=== PATIENT | male | born 1975 | race Caucasian/White ===

== ENCOUNTER 2020-01-10 09:01 | Emergency (ER) | payer BC, SELFPAY ==
--- NOTE | ~2020-01-10 | CT_ITS ---
EXAMINATION: CT abdomen pelvis wo con DATE: 01/10/2020 09:41 INDICATION: Left flank pain. TECHNIQUE: Computed tomography (CT) of the abdomen and pelvis was performed without intravenous contr ast. Automated exposure control and iterative reconstruction technique were employed. The dose-length product was 947.24 mGy-cm. COMPARISON: None. FINDINGS: The visualized portions of the lung bases demonstrate minimal atelectasis. No pleural effus ion. The heart size is normal. No pericardial effusion. There is diffuse hepatic steatosis. There are changes of cholecystectomy. The spleen, pancreas, and adrenal glands are normal. There are 2 stones in right kidney with the larger measuring 3 mm. There is mild left hydronephrosis. There is a [address] one in proximal left ureter. There are no dilated loops of bowel. The appendix is normal. There are n o pathologically enlarged lymph nodes. There is no free intraperitoneal fluid. There is a small left inguinal hernia containing fat. There is mild thoracolumbar spondylosis. IMPRESSION: 1. 4 mm stone in proximal left ureter with mild left hydronephrosis. 2. Small nonobstructing right kidney stones. Reviewed, dictated and finalized at location B.
[2020-01-10 09:10] VITALS: BP 185/104; PULSE 65; RESP 16; TEMP 36.2; O2SAT 100
[2020-01-10 09:31] LABS: Basophils Absolute Auto 0.1 K/mm3 (0.0-0.1); Basophils Percent Auto 0.8 % (0.2-1.2); Eosinophils Absolute Auto 0.2 K/mm3 (0-0.3); Eosinophils Percent Auto 1.5 % (0-4.4); Hemoglobin 15.5 g/dL (14.0-18.0); Immature Granulocyte Absolute 0.03 K/mm3 (0.00-0.031); Immature Granulocyte Percent A 0.3 % (0-0.5); Mean Corpuscular HGB Conc 34.4 g/dl (32-36); Mean Corpuscular Hemoglobin 29.5 pg (26-34); Mean Corpuscular Volume 85.7 fl (80-100); Mean Platelet Volume 10.3 fl (7.4-10.4); Monocytes Absolute Auto 0.7 K/mm3 (0.1-0.6); Monocytes Percent Auto 6.7 % (2.6-8.5); Neutrophils Absolute Auto 6.8 K/mm3 (1.3-6.7); Neutrophils Percent Auto 67.7 % (45.5-73.1); Platelet Count Result 261 k/mm3 (150-375); Red Blood Count 5.25 M/mm3 (4.6-6.20); Red Cell Distribution Width 12.3 % (11.5-14.5)
[2020-01-10 09:35] LABS: Add Urine Microscopic? YES; Appearance Urine Clear (Clear); Bilirubin Urine Negative (Negative); Blood Urine 3+ (Negative); Color Urine Yellow (Yellow); Glucose Urine UA Negative (Negative); Ketones Urine Negative (Negative); Leukocyte Esterase Ur Negative LEU/UL (Negative); Mucus Urine Rare /lpf; Nitrate Urine Negative (Negative); Protein Urine Negative (Negative); RBC Urine >75 /hpf (0-2); Specific Grav Ur 1.016 (1.001-1.035); Squamous Epithelial Cell Urine Rare /hpf (Few); Urobilinogen Urine Negative mg/dL (<2.0); WBC Urine 0-3 /hpf
[2020-01-10] MEDS: ONDANSETRON INJ 4 MG/2 ML VIAL IV PUSH (09:36)
[2020-01-10] MEDS: KETOROLAC 30 MG/ML VIAL (*BKC) IV PUSH (09:36)
[2020-01-10 09:42] LABS: Anion Gap 10 mmol/L (8-16); Blood Urea Nitrogen 18 mg/dL (9-20); Calcium 9.5 mg/dL (8.4-10.2); Carbon Dioxide 26 mmol/L (22-30); Chloride 104 mmol/L (98-107); Estimated CRCL calculation 126 ml/min; Estimated Glomerular Filt Rate > 60; Glucose 113 mg/dL (75-110); Potassium 4.3 mmol/L (3.4-5.0); Sodium 140 mmol/L (137-145)
--- NOTE | 2020-01-10 09:58 | ED.ABDPAIN ---
HPI - Abdominal Pain General Chief Complaint: Abdominal Pain Stated Complaint: lt abd and flank pain Time Seen by Provider: 01/10/20 09:34 Source: patient and family Mode of arrival: ambulatory Limitations: no limitations History of Present Illness HPI narrative: 44 years old white male left flank and left upper quadrant pain started 8-hour prior to arrival to the emergency room, intermittently, like contraction, associated with nausea. Patient denies any fever, chills, vomiting, urinary symptoms Related Data Allergies Allergy/AdvReac Type Severity Reaction Status Date / Time No Known Allergies Allergy Verified 01/10/20 09:14 Review of Systems Review of Systems: Narrative: CONSTITUTIONAL: Denies fever, chills, or sweats. EYES: Denies visual changes, redness, or discharge. ENT: Denies rhinorrhea, congestion, sore throat, or otalgia. CARDIOVASCULAR: Denies chest pain, palpitations, or edema. RESPIRATORY: Denies cough or dyspnea. GASTROINTESTINAL: Denies abdominal pain, nausea, vomiting, or diarrhea. GENITOURINARY: Denies dysuria or hematuria. SKIN: Denies rash or itching. MUSCULOSKELETAL: Denies back pain, joint pain, or myalgia. NEUROLOGIC: Denies headache, numbness, or weakness. PSYCHIATRIC: Denies anxiety or depression. [facility] Past Medical History Medical History (Updated 01/10/20 @ 10:29 by Mariela Parra MD) Gout Hypertension Kidney stone Family History Family History Father Hypertension Other No family history of cardiovascular disease No family history of diabetes mellitus Social History Social History Smoking status: Never smoker Alcohol intake: current Exam Narrative: Exam Narrative: General appearance: Well-developed, well-nourished Skin: Normal color Head: Normocephalic, nontraumatic Eyes: Clear conjunctiva ENT: Oropharynx normal, ears normal, nose normal Neck: Supple, nontender Chest and respiratory: Airway patent, no respiratory distress, no accessory muscle use Heart: Regular rate/rhythm Abdomen: Soft, mild tenderness left flank, no organomegaly, quiet bowel sounds Vascular: Normal peripheral pulses, normal capillary refill. Musculoskeletal: Normal range of motion, nontender back Neurologic: Alert and oriented ?3, [employer] is normal as tested, no gross motor deficit Course Course Emergency Course: Improving Vital Signs Vital signs: Vital Signs Temperature 36.2 C L 01/10/20 09:10 Pulse Rate 65 01/10/20 09:10 Respiratory Rate 16 01/10/20 09:10 Blood Pressure 185/104 H 01/10/20 09:10 Pulse Oximetry 100 01/10/20 09:10 Temperature 36.2 C L 01/10/20 09:10 Pulse Rate 65 01/10/20 09:10 Respiratory Rate 16 01/10/20 09:10 Blood Pressure 185/104 H 01/10/20 09:10 Pulse Oximetry 100 01/10/20 09:10 MDM - Abdominal Pain MDM Narrative Medical decision making narrative: Left flank/left upper quadrant pain Labs, CT abdomen and pelvis without IV contrast, IV fluid ordered. Further plan to follow Please look at my differential diagnosis below Differential Diagnosis Differential diagnosis: Likely calculus of kidney, constipation, diverticulitis and pancreatitis Lab Data Result diagrams: 01/10/20 09:23 01/10/20 09:23 Labs: Lab Results 01/10/20 01/10/20 01/10/20 Range/Units 09:23 09:23 09:23 WBC 10.0 (4.5-10.0) K/mm3 RBC 5.25 (4.6-6.20) M/mm3 Hgb 15.5 (14.0-18.0) g/dL Hct 45.0 (42.0-52.0) % MCV 85.7 (80-100) fl MCH 29.5 (26-34) pg MCHC 34.4 (32-36) g/dl RDW 12.3 (11.5-14.5) % Plt Count 261 (150-375) k/
[2020-01-10 10:53] VITALS: BP 138/75; PULSE 75; RESP 16; O2SAT 100
== END 2020-01-10 10:53 | disposition home or self-care (01) ==
PROVIDERS: Emergency Provider Emergency Medicine; PCP Student in an Organized Health Care Education/Training Program
DX: N20.0 Calculus of kidney (principal); Z87.442 Personal history of urinary calculi; I10 Essential (primary) hypertension
CPT/HCPCS: 36415; 74176; 80048; 81001; 85025; 96374; 96375; 99284; J1170; J1885; J2405

== ENCOUNTER 2020-01-11 14:05 | Outpatient (CLI) | payer BC, SELFPAY ==
--- NOTE | ~2020-01-11 | XR_ITS ---
EXAMINATION: XR abdomen/kub 1V DATE: 01/11/2020 14:28 INDICATION: Left ureteral stone. TECHNIQUE: A supine view of the abdomen on 2 radiographs was obtained. COMPARISON: CT dated 01/10/2020 FINDINGS: No interval change in position of a 4 x 2 mm stone in the proximal left ureter. A slightly smaller st one previously seen at the lower pole of the right kidney is unable to be discriminated from the supe rimposed stool in the proximal colon. No other evident urolithiasis. Couple larger phleboliths in the left hemipelvis. Cholecystectomy clips in right upper quadrant. Mild lumbar levocurvature. IMPRESSION: 1. Unchanged position of a 4 x 2 mm stone in the proximal left ureter. Reviewed, dictated and finalized at location A.
== END 2020-01-11 14:06 | disposition home or self-care (01) ==
PROVIDERS: PCP Student in an Organized Health Care Education/Training Program; Visit Provider Urology
DX: N20.1 Calculus of ureter (principal)
CPT/HCPCS: 74018

== ENCOUNTER 2020-01-14 05:26 | Day surgery (SDC) | payer BC, SELFPAY ==
[2020-01-14] VITALS (12 sets, daily range): BP systolic 133–166; BP diastolic 80–92; PULSE 68–92; RESP 12–20; TEMP 36.1–36.7; O2SAT 96–100
--- NOTE | ~2020-01-14 | XR_ITS ---
EXAMINATION: XR abdomen/kub 1V DATE: 01/14/2020 06:46 INDICATION: Kidney stone presenting with left flank pain TECHNIQUE: A supine view of the abdomen on 2 radiographs was obtained. COMPARISON: KUB dated 01/11/2020 FINDINGS: There is a new 3 mm density projecting over the left sacrum which could represent advancement of a st one previously seen but no longer present at the proximal left ureter. A couple unchanged phleboliths in the left hemipelvis. No dilated loops of bowel to suggest obstruction. Moderate amount of stool i n the proximal colon. Cholecystectomy clips in the right upper quadrant. Mild thoracolumbar dextrocur vature. IMPRESSION: 1. 3 mm left ureteral stone appears to advanced into the distal left ureter. Reviewed, dictated and finalized at location A.
--- NOTE | ~2020-01-14 | XR_ITS ---
EXAMINATION: XR retrograde pyelo w/stent LT DATE: 01/14/2020 11:28 INDICATION: Left internal ureteral stent placement TECHNIQUE: Fluoroscopic images from a left internal ureteral stent placement are submitted for review . 19 seconds of fluoroscopy time. 6 fluoroscopic images. FINDINGS: There is a left double-J internal ureteral stent projecting in expected position, with proximal [place] loop at the level of the renal pelvis and distal loop in the pelvis within the bladder lumen. IMPRESSION: 1. Left internal ureteral stent placement. Please refer to real-time procedural findings for detail s. Reviewed, dictated and finalized at location A. IMPRESSION: 1. Left internal ureteral stent placement. Please refer to real-time procedur al findings for details.
[2020-01-14] MEDS: ONDANSETRON INJ 4 MG/2 ML VIAL IV PUSH ×2 (06:08→08:21)
[2020-01-14 06:15] LABS: Basophils Absolute Auto 0.1 K/mm3 (0.0-0.1); Basophils Percent Auto 0.5 % (0.2-1.2); Eosinophils Absolute Auto 0.1 K/mm3 (0-0.3); Eosinophils Percent Auto 0.8 % (0-4.4); Hematocrit 41.4 % (42.0-52.0); Hemoglobin 14.2 g/dL (14.0-18.0); Immature Granulocyte Absolute 0.04 K/mm3 (0.00-0.031); Immature Granulocyte Percent A 0.3 % (0-0.5); Lymphocytes Absolute Auto 1.83 K/mm3 (0.9-3.2); Lymphocytes Percent Auto 14.1 % (18.3-44.2); Mean Corpuscular HGB Conc 34.3 g/dl (32-36); Mean Corpuscular Hemoglobin 29.3 pg (26-34); Mean Corpuscular Volume 85.4 fl (80-100); Mean Platelet Volume 10.1 fl (7.4-10.4); Monocytes Absolute Auto 1.1 K/mm3 (0.1-0.6); Monocytes Percent Auto 8.4 % (2.6-8.5); Neutrophils Absolute Auto 9.9 K/mm3 (1.3-6.7); Neutrophils Percent Auto 75.9 % (45.5-73.1); Platelet Count Result 232 k/mm3 (150-375); Red Blood Count 4.85 M/mm3 (4.6-6.20); Red Cell Distribution Width 11.9 % (11.5-14.5)
[2020-01-14 06:37] LABS: Alanine Aminotransferase 40 U/L (4-50); Albumin Level 4.8 g/dL (3.5-5.1); Alkaline Phosphatase 71 U/L (38-126); Anion Gap 10 mmol/L (8-16); Aspartate Amino Transferase 39 U/L (17-59); Bilirubin,Total 0.9 mg/dL (0.2-1.3); Blood Urea Nitrogen 18 mg/dL (9-20); Calcium 9.5 mg/dL (8.4-10.2); Carbon Dioxide 27 mmol/L (22-30); Chloride 101 mmol/L (98-107); Estimated Glomerular Filt Rate > 60; Glucose 110 mg/dL (75-110); Potassium 4.2 mmol/L (3.4-5.0); Sodium 138 mmol/L (137-145)
--- NOTE | 2020-01-14 07:02 | ED.MALEGU ---
HPI - Male Genitourinary General Chief complaint: Urogenital-Male Stated complaint: kidney stone, cant urinate Time Seen by Provider: 01/14/20 07:01 Source: patient and family Mode of arrival: ambulatory Limitations: no limitations History of Present Illness HPI Narrative: Patient is a 44-year-old male with a history of nephrolithiasis, recently diagnosed with a 4 mm kidney stone who presents for evaluation of continued flank pain, nausea, vomiting. Patient is also reporting much difficulty with urination, at times even though he is trying to forcefully urinate he cannot make any urination occur. He has been taking his at home pain medication as scheduled. He saw Dr. Scott in office on Thursday, and the plan is to schedule him for lithotripsy ; patient not have a date for this yet. Patient denies fever, chills. He reports his pain is controlled with the pain medication. Related Data Home Medications Medication Instructions Recorded Confirmed atenolol 50 mg PO DAILY 01/14/20 losartan 50 mg PO DAILY 01/14/20 Allergies Allergy/AdvReac Type Severity Reaction Status Date / Time No Known Allergies Allergy Verified 01/14/20 07:33 Review of Systems Review of Systems: Narrative: CONSTITUTIONAL: Denies fever, chills, or sweats. CARDIOVASCULAR: Denies chest pain RESPIRATORY: Denies cough or dyspnea. GASTROINTESTINAL: Reports intermittent left flank pain, nausea and vomiting GENITOURINARY: Denies dysuria or hematuria. Reports urinary retention SKIN: Denies rash or itching. MUSCULOSKELETAL: Denies joint pain, or myalgia. NEUROLOGIC: Denies headache PMFSH Past Medical History Medical History Gout Hypertension Kidney stone Social History Social History Smoking status: Never smoker Alcohol intake: current Exam Narrative: Exam Narrative: GENERAL: Awake, alert, conversant HEAD: Normocephalic, atraumatic. EYES: PERRLA and EOMI. ENT: Nares clear, no rhinorrhea or epistaxis. Mucous membranes moist. NECK: Supple. CHEST: No respiratory distress, breathing even and non labored HEART: Regular rate, sinus rhythm ABDOMEN:Non distended, non tender EXTREMITIES: Normal range of motion. No edema. SKIN: Warm, dry, no rash. NEURO:No focal deficits. Alert and oriented x3 Course Vital Signs Vital signs: Vital Signs Temperature 36.1 C L 01/14/20 05:30 Pulse Rate 92 01/14/20 05:30 Respiratory Rate 16 01/14/20 05:30 Blood Pressure 165/92 H 01/14/20 05:30 Pulse Oximetry 99 01/14/20 05:30 Temperature 36.1 C L 01/14/20 05:30 Pulse Rate 82 01/14/20 09:05 Respiratory Rate 18 01/14/20 09:05 Blood Pressure 146/84 H 01/14/20 09:05 Pulse Oximetry 99 01/14/20 09:05 MDM - Male Genitourinary MDM Narrative Medical decision making narrative: Patient presents with continued left-sided renal colic. At the time of assessment, ABCs are intact and vital signs are stable. Physical exam relatively unremarkable. Patient is having some issues with urination and had to have straight catheterization in the ER. His kidney function, creatinine has increased slightly from the 25th. No UTI. Mild new leukocytosis. Likely secondary to pain/leukemoid reaction. I reviewed the KUB and there does not seem to be much movement on the left-sided proximal ureteral stone. Given patient's vomiting, continued pain, now with urinary retention, I spoke with on-call urology Dr. Roberts who will come to the hospital to place a stent in this patient. Patient was placed on IV maintenance fluids, made n.p.o. Patient and family were updated. Plan is for OR today from the emergency department. Differential Diagnosis Differential diagnosis: Likely acute retention of urine and other (Renal colic, acute kidney injury) Medical Records Attestation: I reviewed the patient's medical records. Lab Data Attestation: I reviewed the patien
[2020-01-14 07:27] LABS: Add Urine Microscopic? YES; Appearance Urine Clear (Clear); Bilirubin Urine Negative (Negative); Blood Urine 3+ (Negative); Color Urine Yellow (Yellow); Glucose Urine UA Negative (Negative); Ketones Urine 1+ mg/dL (Negative); Leukocyte Esterase Ur Negative LEU/UL (Negative); Mucus Urine Rare /lpf; Nitrate Urine Negative (Negative); Protein Urine Negative (Negative); RBC Urine >75 /hpf (0-2); Specific Grav Ur 1.023 (1.001-1.035); Squamous Epithelial Cell Urine Rare /hpf (Few); Urobilinogen Urine Negative mg/dL (<2.0)
[2020-01-14] MEDS: SODIUM CHLORIDE 0.9% IV 1,000 ML 999 ML IV CONT (08:20)
[2020-01-14] MEDS: MORPHINE SULFATE 2 MG/ML INJ IV PUSH (08:21)
[2020-01-14] MEDS: SODIUM CHLORIDE 0.9% IV 1,000 ML 150 ML IV CONT (09:19)
--- NOTE | 2020-01-14 10:46 | WPDANESEPPF ---
Anes - Initial Pre Proc Eval Procedure: Operation Date: 01/14/20 10:30 Proposed Procedures p Cysto, RPG, Stone Ext, Stent Placement - Srihdar Roberts MD Date/Time: 01/14/20 10:46 Surgeon: Santos Roberts MD Pre Op Diagnosis: kidney stone, cant urinate Patient Data Age: 44 Gender: M Height: Weight: 104.3 kg Last Vital Signs Temp 36.1 C L 01/14/20 05:30 Pulse 72 01/14/20 10:10 Resp 18 01/14/20 10:10 BP 145/83 H 01/14/20 10:10 Pulse Ox 98 01/14/20 10:10 Allergies Allergy/AdvReac Type Severity Reaction Status Date / Time No Known Allergies Allergy Verified 01/14/20 07:33 Home Medications Medication Instructions Recorded Confirmed Type ondansetron 4 mg PO Q6H PRN #10 tablet 01/10/20 Rx oxycodone-acetaminophen [Percocet] 1 tablet PO Q4H PRN #20 tablet 01/10/20 Rx tamsulosin [Flomax] 0.4 mg PO HS #10 cap 01/10/20 Rx atenolol 50 mg PO DAILY 01/14/20 History losartan 50 mg PO DAILY 01/14/20 History Laboratory Tests 01/14/20 01/14/20 01/14/20 06:10 06:10 07:13 WBC 13.0 K/mm3 H K/mm3 (4.5-10.0) RBC 4.85 M/mm3 M/mm3 (4.6-6.20) Hgb 14.2 g/dL g/dL (14.0-18.0) Hct 41.4 % L % (42.0-52.0) MCV 85.4 fl fl (80-100) MCH 29.3 pg pg (26-34) MCHC 34.3 g/dl g/dl (32-36) RDW 11.9 % % (11.5-14.5) Plt Count 232 k/mm3 k/mm3 (150-375) MPV 10.1 fl fl (7.4-10.4) Immature Gran % (Auto) 0.3 % % (0-0.5) Neut % (Auto) 75.9 % H % (45.5-73.1) Lymph % (Auto) 14.1 % L % (18.3-44.2) Dare % (Auto) 8.4 % % (2.6-8.5) Eos % (Auto) 0.8 % % (0-4.4) Baso % (Auto) 0.5 % % (0.2-1.2) Lymph # (Auto) 1.83 K/mm3 K/mm3 (0.9-3.2) Dare # (Auto) 1.1 K/mm3 H K/mm3 (0.1-0.6) Eos # (Auto) 0.1 K/mm3 K/mm3 (0-0.3) Baso # (Auto) 0.1 K/mm3 K/mm3 (0.0-0.1) Abs Immat Gran (auto) 0.04 K/mm3 H K/mm3 (0.00-0.031) Absolute Neuts (auto) 9.9 K/mm3 H K/mm3 (1.3-6.7) Absolute Nucleated RBC 0.0 K/mm3 K/mm3 (0.0-0.012) Nucleated RBC % 0.0 % % (0.0-0.2) Sodium 138 mmol/L mmol/L (137-145) Potassium 4.2 mmol/L mmol/L (3.4-5.0) Chloride 101 mmol/L mmol/L (98-107) Carbon Dioxide 27 mmol/L mmol/L (22-30) Anion Gap 10 mmol/L mmol/L (8-16) BUN 18 mg/dL mg/dL (9-20) Creatinine 1.10 mg/dL mg/dL (0.7-1.3) Estim Creat Clear Calc Not Reportable Estimated GFR > 60 (59 - ) Glucose 110 mg/dL mg/dL (75-110) Calcium 9.5 mg/dL mg/dL (8.4-10.2) Total Bilirubin 0.9 mg/dL mg/dL (0.2-1.3) AST 39 U/L U/L (17-59) ALT 40 U/L U/L (4-50) Alkaline Phosphatase 71 U/L U/L (38-126) Total Protein 8.0 g/dL g/dL (6.3-8.2) Albumin 4.8 g/dL g/dL (3.5-5.1) Urine Color Yellow (Yellow) Urine Appearance Clear (Clear) Urine pH 5.0 (5.0-9.0) Ur Specific [place] 1.023 (1.001-1.035) Urine Protein Negative mg/dL mg/dL (Negative) Urine Glucose (UA) Negative mg/dL mg/dL (Negative) Urine Ketones 1+ mg/dL H mg/dL (Negative) Ur Blood (Man) 3+ H (Negative) Urine Nitrate Negative (Negative) Urine Bilirubin Negative (Negative) Urine Urobilinogen Negative mg/dL mg/dL (<2.0) Leukocyte Esterase Rfl Negative KRISHNA/UL KRISHNA/UL (Negative) Urine RBC >75 /hpf H /hpf (0-2) Urine WBC 4-6 /hpf H /hpf Ur Squamous Epith Cells Rare /hpf /hpf (Few) Urine Mucus Rare /lpf /lpf Patient hx anesthesia problems: none Family hx anesthesia problems: none PMFSH Past Medical History Medical History (Reviewed 01/14/20 @ 07:49 by Geri Wolfe
[2020-01-14] MEDS: ceFAZolin SODIUM 1 GM VIAL 2 GM IV PUSH (11:11)
[2020-01-14] MEDS: LIDOCAINE HCL 2% GEL UROJET 10 ML PKG MUCOUS MEM (11:26)
--- NOTE | 2020-01-14 11:27 | WPDURCON ---
Assessment and Plan Assessment and plan (1) Renal colic on left side: Code(s): N23 - Unspecified renal colic Status: Acute (2) Left ureteral stone: Code(s): N20.1 - Calculus of ureter Status: Acute (3) Hydronephrosis, left: Code(s): N13.30 - Unspecified hydronephrosis Status: Acute (4) Right kidney stone: Code(s): N20.0 - Calculus of kidney Status: Acute Additional Plan Cysto left stent today to address hydronephrosis and renal colic Anticipate left ureter ESWL and stent removal in the next week or so Urology Consult Note HPI Date Seen: 01/14/20 Requesting Physician: Santos Roberts MD Primary Care Provider: Fili Gonsales, DO Consult Narrative Narrative: Doug Walsh is a 44 year old male with persistent left renal colic secondary to a 4mm left ureter stone. Was supposed to have ESWL yesterday but unfortunately could not be scheduled. Made his 3rd trip to the ER today with persistent pain despite Flomax and oral pain meds. We will proceed with stent placement to alleviate obstruction. Review of Systems Review of Systems: All systems reviewed & are unremarkable except as noted in HPI and below (HPI) PMFSH Past Medical History Medical History Gout Hypertension Kidney stone Family History Family History Father Hypertension Other No family history of cardiovascular disease No family history of diabetes mellitus Social History Social History Smoking status: Never smoker Alcohol intake: current Meds Home Medications and Allergies Home Medications Medication Instructions Recorded Confirmed Type ondansetron 4 mg PO Q6H PRN #10 tablet 01/10/20 Rx oxycodone-acetaminophen [Percocet] 1 tablet PO Q4H PRN #20 tablet 01/10/20 Rx tamsulosin [Flomax] 0.4 mg PO HS #10 cap 01/10/20 Rx atenolol 50 mg PO DAILY 01/14/20 History losartan 50 mg PO DAILY 01/14/20 History Allergies Allergy/AdvReac Type Severity Reaction Status Date / Time No Known Allergies Allergy Verified 01/14/20 07:33 Vital Signs Vital Signs - 24 hr 01/14/20 05:30 01/14/20 07:37 01/14/20 08:19 Temperature 36.1 C L Pulse Rate 92 73 71 Respiratory Rate 16 20 18 Blood Pressure 165/92 H 165/92 H 153/84 H Pulse Oximetry 99 96 98 01/14/20 09:05 01/14/20 10:10 01/14/20 10:25 Temperature Pulse Rate 82 72 77 Respiratory Rate 18 18 18 Blood Pressure 146/84 H 145/83 H 145/81 H Pulse Oximetry 99 98 99 Exam Narrative: Exam Narrative: NAD NCAT Breathing unlabored Abdomen soft nt nd MAEW deferred Results Labs CBC & Chem 7: 01/14/20 06:10 01/14/20 06:10 Labs: Short CBC 01/14/20 Range/Units 06:10 WBC 13.0 H (4.5-10.0) K/mm3 Hgb 14.2 (14.0-18.0) g/dL Hct 41.4 L (42.0-52.0) % Plt Count 232 (150-375) k/mm3 BMP 01/14/20 06:10 Sodium 138 Potassium 4.2 Chloride 101 Carbon Dioxide 27 BUN 18 Creatinine 1.10 Glucose 110 Calcium 9.5 Liver Function 01/14/20 Range/Units 06:10 Total Bilirubin 0.9 (0.2-1.3) mg/dL AST 39 (17-59) U/L ALT 40 (4-50) U/L Alkaline Phosphatase 71 (38-126) U/L Albumin 4.8 (3.5-5.1) g/dL Urine 01/14/20 Range/Units 07:13 Urine Color Yellow (Yellow) Urine Appearance Clear (Clear) Urine pH 5.0 (5.0-9.0) Ur Specific [place] 1.023 (1.001-1.035) Urine Protein Negative (Negative) mg/dL Urine Glucose (UA) Negative (Negative) mg/dL
--- NOTE | 2020-01-14 11:33 | PM.PROC ---
Procedure Note - Detailed Date of procedure: 01/14/20 Pre-op diagnosis: kidney stone, cant urinate Surgeon: Santos Roberts MD Preop Dx: Left ureter stone, renal colic and hydro Post op Dx: same Procedure: cysto, left retrograde pyelogram and left stent placement Surgeon: Armando ANesthesia: LMA and local EBL: None Findings: Left hydronephrosis and left ureter stone Description: After time out performed and preop antibiotics given, the patient was taken to the OR and placed in a dorsal lithotomy position. He was prepped and draped in a sterile fashion. Viscous lidocaine jelly was administered for local anesthetic. 22Fr cystoscope was inserted thru the urethra and gained access to the bladder. The urethra was normal with mild bilobar hypertrophy of the prostate. The bladder was thoroughly inspected. There was no evidence of a tumor, stone or erythema. Mild efflux of urine was noted from left ureteral orifice. 5Fr angiographic catheter was inserted into the left ureter and a retrograde pyelogram was performed. It revealed mild hydronephrosis and a proximal to mid ureter filling defect consistent with the 4mm stone. A glidewire was inserted in the left kidney and verified on flouroscopy. The angiographic was removed and a 6Fr variable length stent was placed over the wire. The stent was positioned in the left renal pelvis and a coil was formed in the bladder. The patient tolerated the procedure well. There were no complications. Disposition: Stable to PACU Drains: 6Fr variable length stent
[2020-01-14] MEDS: LACTATED RINGERS 1,000 ML 30 ML IV CONT (11:53)
--- NOTE | 2020-01-14 12:36 | SUR.PHASEII ---
1220-AMBULATED WITH STANDBY ASSIST TO BR TO VOID. 1225-RETURNED TO RECLINER FROM BR. GAIT STEADY.
--- NOTE | 2020-01-14 13:21 | SUR.PHASEII ---
1300-AMBULATED TO BR TO VOID AND READY FOR DISCHARGE.
== END 2020-01-14 13:05 | disposition home or self-care (01) ==
LOC: ANHED 08:33 → ANHSURGERY 10:41
PROVIDERS: General Practice; Emergency Provider Emergency Medicine; PCP Student in an Organized Health Care Education/Training Program; Visit Provider Urology
PROC: (CPT 52352; principal; 2020-01-14 10:30)
DX: N13.2 Hydronephrosis with renal and ureteral calculous obstruction (principal); I10 Essential (primary) hypertension; Z79.82 Long term (current) use of aspirin; Z79.899 Other long term (current) drug therapy
CPT/HCPCS: 52332; 36415; 74018; 74420; 80053; 81001; 85025; 96361; 96374; 96375; 96376; 99285; A9270; C1758; C2617; J0131; J0330; J0690; J1100; J1170; J2250; J2270; J2405; J2704; J3010; J7030; J7120; Q9966

== ENCOUNTER 2020-01-27 08:32 | Outpatient (CLI) | payer BC, SELFPAY ==
--- NOTE | 2020-01-27 08:34 | ECG_ITS ---
Measurements Intervals [place] Rate: 63 P: 54 DC: 181 QRS: 30 QRSD: 97 T: 11 QT: 369 QTc: 380 Interpretive Statements SINUS RHYTHM BASELINE ARTIFACT- I, II, III, AVR, AVL,A VF NORMAL ECG Electronically Signed On 01-27-2020 8:49:39 CDT by Sergio Zuñiga D.O.
[2020-01-27 09:03] LABS: Partial Thromboplastin Time 29.3 SECONDS (22.3-36.8)
== END 2020-01-27 08:33 | disposition home or self-care (01) ==
PROVIDERS: PCP Student in an Organized Health Care Education/Training Program; Visit Provider Urology
DX: Z01.818 Encounter for other preprocedural examination (principal); N20.0 Calculus of kidney; I10 Essential (primary) hypertension
CPT/HCPCS: 36415; 85610; 85730; 87086; 93005

== ENCOUNTER 2020-02-01 00:09 | Outpatient (CLI) | payer BC, SELFPAY ==
[2020-02-01 18:28] LABS: SARS-CoV-2 RNA PCR Negative
== END 2020-02-01 00:10 | disposition home or self-care (01) ==
LOC: ANHCOVIDDT 00:09
PROVIDERS: PCP Student in an Organized Health Care Education/Training Program; Visit Provider Urology
DX: Z01.812 Encounter for preprocedural laboratory examination (principal); Z11.59 Encounter for screening for other viral diseases
CPT/HCPCS: 87635; C9803; U0003

== ENCOUNTER 2020-02-03 03:46 | Day surgery (SDC) | payer BC, SELFPAY ==
[2020-01-25 16:12] VITALS: BMI 34.8
--- NOTE | 2020-02-02 10:24 | WPDANESEPPF ---
Anes - Initial Pre Proc Eval Procedure: Operation Date: 02/03/20 07:30 Proposed Procedures p Left Ureteral Extracorporeal Shock Wave Lithotripsy - Jl Scott MD s Possible Cystoscopy, Possible Left Ureteroscopy, Possible Left Stone Extraction - Jl Scott MD s Possible Holmium Laser Procedure - Jl Scott MD Date/Time: 02/02/20 10:24 Surgeon: Jl Scott MD Pre Op Diagnosis: left ureteral stones Patient Data Age: 44 Gender: M Height: 1.8 m Weight: 113.4 kg Allergies Allergy/AdvReac Type Severity Reaction Status Date / Time No Known Allergies Allergy Verified 02/03/20 06:53 Home Medications Medication Instructions Recorded Confirmed Type atenolol 50 mg PO QNOON 01/14/20 02/03/20 History losartan 50 mg PO DAILY 01/14/20 02/03/20 History Vitamin D3 1 tablet PO DAILY 01/25/20 02/03/20 History Patient hx anesthesia problems: none Family hx anesthesia problems: none PMFSH Social History Social History Smoking status: Never smoker Alcohol intake: current Drinks per week: 2 Spiritual care concerns: No Anes - Eval Final PreProcedure Day of Procedure 02/02/20 10:24 Patient weight: obese Heart: regular rate and rhythm Lungs: clear to auscultation and normal air movement Airway: Mallampati scale class II Neurological: alert and oriented Last oral intake: >/= 8 hours ASA classification: III Emergent: no Anesthetic plan: proceed Anesthesia type and monitoring: general LMA and standard monitoring Informed Consent: The patient's anesthetic plan and its attendant risks and benefits were discussed with the patient/family/POA. Questions were solicited and answers provided to the satisfaction of the patient/family/POA.
[2020-02-03] VITALS (8 sets, daily range): BP systolic 131–159; BP diastolic 83–96; PULSE 58–92; RESP 14–18; TEMP 36.2–36.6; O2SAT 97–100
--- NOTE | ~2020-02-03 | XR_ITS ---
EXAMINATION: XR abdomen/kub 1V EXAM DATE: 02/03/2020 06:15 INDICATION: Left-sided kidney stone. Stent. TECHNIQUE: Frontal projection(s) of the abdomen for interpretation. Comparison is made to prior exami nation from 01/14/20. FINDINGS: There is been interval insertion of a left-sided double-J ureteral stent in position. Can' t identify the previously seen small left mid ureteral stone. Calcifications in the pelvis are believ ed to be phleboliths. There are cholecystectomy clips. Small amount of bowel gas. There are no osseou s abnormalities identified. IMPRESSION: 1. Left ureteral stent in position. Reviewed, dictated and finalized at location A.
--- NOTE | ~2020-02-03 | XR_ITS ---
EXAMINATION: XR retrograde pyelo w/stent LT DATE: 02/03/2020 07:53 INDICATION: Left internal ureteral stent placement TECHNIQUE: Fluoroscopic images from a left internal ureteral stent placement are submitted for review . 12 seconds of fluoroscopy time. 5 fluoroscopic images FINDINGS: There is a left double-J internal ureteral stent projecting in expected position, with proximal Mackey loop at the level of the renal pelvis and distal loop in the pelvis within the bladder lumen. IMPRESSION: 1. Left internal ureteral stent placement. Please refer to real-time procedural findings for detail s. Reviewed, dictated and finalized at location B. IMPRESSION: 1. Left internal ureteral stent placement. Please refer to real-time procedur al findings for details.
[2020-02-03] MEDS: LACTATED RINGERS 1,000 ML 30 ML IV CONT (06:40)
--- NOTE | 2020-02-03 07:16 | WPDHPUPDATE1 ---
History and Physical Update Update Date/Time: 02/03/20 07:16 History and Physical has been reviewed, including an updated exam of the patient. There are NO changes in the patient's condition. Risks, benefits, and alternatives have been discussed and questions answered. Patient agrees to proceed with procedure. Stone no longer visible on kub. Will plan on cysto, left retrograde, left ureteroscopy with stone extraction , possible laser, stent exchange.
[2020-02-03] MEDS: ceFAZolin 2 GM/D5W 50 ML 2 GM/50 ML BAG IVPB (07:27)
[2020-02-03] MEDS: LIDOCAINE HCL 2% GEL UROJET 10 ML PKG MUCOUS MEM (07:42)
--- NOTE | 2020-02-03 07:47 | PM.PROC ---
Procedure Note - Detailed Date of procedure: 02/03/20 Pre-op diagnosis: left ureteral stones Post-op diagnosis: same Procedure performed: Cystoscopy, left retrograde pyelogram, left ureteroscopy with stone extraction, left ureteral stent exchange 4.8 [place]ian contour Description of procedure: Since the stone was not visualized on KUB we decided to proceed with ureteroscopy. Patient was taken to the operative suite correctly identified. Once anesthesia was obtained he was placed in the dorsal lithotomy position and prepped and draped usual sterile fashion. A 22 Slovenian scope was inserted into the bladder. He does have some mild narrowing of the bulbar urethra. It allowed passage of the scope this time. The stent was visualized grasped brought out the meatus. A guidewire was placed. A rigid ureteral scope was then inserted and the stone was located in the mid ureter. Using an escape basket we were able to retrieve it in its entirety. This is sent for analysis. Reinspection is does reveal some edema in the ureter. We thus did a pyelogram to confirm placement of the stent. There were no filling defects noted. A 4.8 Slovenian contour stent was then placed with the proximal end coiled in the renal pelvis and the distal in the bladder. 2% viscous lidocaine was inserted urethra patient was taken recovery room stable condition. He will follow up in a week's time for stent removal. Anesthesia: GLMA Surgeon: Jl Scott MD Drains: Yes Packing: No Pathology: yes Complications: No immediate complications Condition: stable Disposition: PACU
== END 2020-02-03 09:05 | disposition home or self-care (01) ==
PROVIDERS: PCP Student in an Organized Health Care Education/Training Program; Visit Provider Urology
PROC: (CPT 52352; 2020-02-03 07:30)
DX: N20.1 Calculus of ureter (principal); E66.9 Obesity, unspecified; Z68.31 Body mass index [BMI] 31.0-31.9, adult
CPT/HCPCS: 52332; 52352; 74018; 74420; 82365; 88300; A9270; C1769; C2617; J0690; J1100; J2250; J2405; J2704; J3010; J7030; J7120